=== PATIENT | female | born 1950 | race Two or more races ===

== ENCOUNTER 2016-08-05 11:37 | Outpatient (CLI) | payer MEDICARE ==
--- NOTE | 2016-08-05 13:45 | Diagnostic Imaging Report ---
Indication: COUGH Technique: PA and lateral views of the chest. Findings: Comparison: None Small osteophytes in lower thoracic spine. Aortic arch mildly calcified. Remaining bones and extra pulmonary soft tissues, remainder of the cardiomediastinal silhouette, pulmonary vasculature and parenchyma, and pleural surfaces are unremarkable. IMPRESSION: No evidence of acute cardiopulmonary disease Chronic changes as described
== END 2016-08-05 13:07 | disposition home or self-care (01) ==
LOC: RAD 11:37 → EDBD 11:37 → RAD 13:07
DX: Z01.818 Encounter for other preprocedural examination (principal); R05 Cough; M25.78 Osteophyte, vertebrae
CPT/HCPCS: 71020

== ENCOUNTER 2018-01-24 11:21 | Outpatient (CLI) | payer MEDICARE, MEDICAID ==
--- NOTE | 2018-01-24 13:20 | Diagnostic Imaging Report ---
Indication: Dyspnea Comparison: 08/05/2016 2 views of the chest obtained. Findings: Heart is normal size. There is some interstitial prominence. Lungs are hyperexpanded. Bones are osteopenic. IMPRESSION: COPD
== END 2018-01-24 13:21 | disposition home or self-care (01) ==
LOC: RAD 11:21
DX: I10 Essential (primary) hypertension (principal); J44.9 Chronic obstructive pulmonary disease, unspecified
CPT/HCPCS: 71046

== ENCOUNTER 2019-04-03 12:04 | Outpatient (CLI) | payer MEDICARE, MEDICAID ==
--- NOTE | 2019-04-03 13:13 | Diagnostic Imaging Report ---
Indication: Cough Technique: 2 views of the chest Comparison: 01/24/2018 Findings: Lungs and pleural spaces are clear. The heart size is normal. The bones are unremarkable. No significant interim change. Impression: Negative
[2019-04-16] MEDS ORDERED: CRESTOR10 M2 ORAL (15:27)
[2019-04-16] MEDS ORDERED: OMEPRAZOLE40 M1 ORAL (15:27)
[2019-04-16] MEDS ORDERED: PROLIA60 MG/1 ML SUBQ (15:28)
== END 2019-04-03 14:04 | disposition home or self-care (01) ==
LOC: RAD 12:04
DX: R05 Cough (principal); I10 Essential (primary) hypertension
CPT/HCPCS: 71046

== ENCOUNTER 2019-04-17 05:16 | Inpatient (IN) | payer MEDICARE, MEDICAID ==
[~2019-04-17] VITALS: Ht 149.9 cm; Wt 55.8 kg
[2019-04-17] VITALS (16 sets, daily range): BP systolic 100–137; BP diastolic 56–104
[~2019-04-17 05:16] MED LIST: CRESTOR10 M2 ORAL; OMEPRAZOLE40 M1 ORAL; PROLIA60 MG/1 ML SUBQ
[2019-04-17] MEDS ORDERED: ceFAZolin 1gm IVPB IVPB ONE ×2 (06:00)
[2019-04-17] MEDS ORDERED: celeBREX 200mg Cap **SURGERY PATIENTS ONLY ORAL ONE (06:00)
[2019-04-17] MEDS ORDERED: oxyCONTIN 20mg tab ORAL ONE (06:00)
[2019-04-17] MEDS ORDERED: Bacitracin 50000 Units Vial ONE (06:59)
[2019-04-17] MEDS ORDERED: NeoSporin Gu Irrig 1ml Amp IRRIG ONE (06:59)
[2019-04-17] MEDS ORDERED: LR 1000ml ONE (07:00)
[2019-04-17] MEDS ORDERED: NS Irrig 2000ml IRRIG ONE (07:00)
[2019-04-17] MEDS ORDERED: Tranexamic Acid 100 ML IVPB ONE (07:00)
[2019-04-17] MEDS ORDERED: Sterile Water Irrig 1000ml IRRIG ONE (07:00)
[2019-04-17] MEDS ORDERED: Tranexamic Acid 1,000 MG in NS 55 ML IV ONE (07:00)
[2019-04-17] MEDS ORDERED: NS Irrig 1000ml ONE (07:00)
--- NOTE | 2019-04-17 07:00 | Pre-Procedure Note/Attestation ---
Pre-Procedure Note/Attestation Complete Prior to Procedure Planned Procedure: right Procedure Narrative: right total knee arthroplasty Indications for Procedure Pre-Operative Diagnosis: right knee arthritis Attestation I attest that I discussed the nature of the procedure; its benefits; risks and complications; and alternatives (and the risks and benefits of such alternatives ), prior to the procedure, with the patient (or the patient's legal player services representative). I attest that, if there was a reasonable possibility of needing a blood transfusion, the patient (or the patient's legal player services representative) was given the [facility] standardized written summary, pursuant to the [place] Blood Safety Act ([place] Health and Safety Code # 1645, as amended). I attest that I re-evaluated the patient just prior to the surgery and that there has been no change in the patient's H&P, except as documented below: none Shoaib Booker MD Apr 17, 2019 07:00
[2019-04-17] MEDS ORDERED: Morphine Sulfate 10mg/ml Inj ONE ×2 (07:21→07:27)
[2019-04-17] MEDS ORDERED: Propofol 200mg/20ml IV ONE (07:35)
[2019-04-17] MEDS ORDERED: Dexamethasone 4mg/ml vial ONE ×2 (07:35→08:36)
[2019-04-17] MEDS ORDERED: Lidocaine 1% MPF 10mg/ml 5ml ONE (07:35)
[2019-04-17] MEDS ORDERED: Ketorolac 30mg Inj ONE ×2 (07:46→08:36)
--- NOTE | 2019-04-17 07:58 | Anethesia Preoperative Eval ---
Anesthesia Pre-op PMH/ROS General Date of Evaluation: Apr 17, 2019 Time of Evaluation: 07:00 ASA Score: ASA 2 Mallampati Score Class I : Soft palate, uvula, fauces, pillars visible Class II: Soft palate, uvula, fauces visible Class III: Soft palate, base of uvula visible Class IV: Only hard plate visible Mallampati Classification: Class II Allergies: Coded Allergies: No Known Allergies (Unverified , 04/17/19) Patient NPO?: Yes NPO Date: Apr 16, 2019 NPO Time: 1800 Anesthesia Pre-op Phys. Exam Physician Exam Last Vital Signs Date Time Temp Pulse Resp B/P (MAP) Pulse Ox O2 Delivery O2 Flow Rate FiO2 04/17/19 06:00 Room Air 04/17/19 05:49 97.0 78 18 125/76 (92) 97 Airway Exam Mallampati Score: Class II Pepe Knight MD Apr 17, 2019 07:58
[2019-04-17] MEDS ORDERED: fentaNYL 100 mcg/2 mL IV PRN (08:00)
[2019-04-17] MEDS ORDERED: Metoclopramide 10mg/2ml Inj ONE (08:36)
--- NOTE | 2019-04-17 09:29 | Brief Operative Note ---
Immediate Post Operative Note Operative Note Chief Complaint: rt knee pain Pre-op Diagnosis: right knee arthritis Procedure: rt tka Post-op Diagnosis: same as pre-op Findings: consistent w/pre-op dx studies Surgeon: md prem Produce Production Team Member: maame carvalho Anesthesiologist: MD Eugene/MD Sudheer Anesthesia: general, regional Specimen: yes Complications: none Condition: stable Fluids: ns Estimated Blood Loss: minimal Drains: none Implant(s) used?: Yes - Shoaib Junior MD Apr 17, 2019 09:29
--- NOTE | 2019-04-17 09:46 | Immediate Post-Op Evaluation ---
Immediate Post-Op Evalulation Immediate Post-Op Evalulation Procedure: Right TKA Date of Evaluation: Apr 17, 2019 Time of Evaluation: 09:47 IV Fluids: 1.2L Blood Products: 0 Estimated Blood Loss: 50 Urinary Output: 200 Blood Pressure Systolic: 130 Blood Pressure Diastolic: 76 Pulse Rate: 99 Respiratory Rate: 16 O2 Sat by Pulse Oximetry: 100 Temperature (Fahrenheit): 98 Pain Score (1-10): 0 Nausea: No Vomiting: No Complications 0 Patient Status: awake, reacts, patent, none Hydration Status: adequate Drug: Ancef 2g Given Within 1 Hr of Incision: Yes Rimma Yeboah MD Apr 17, 2019 09:46
[2019-04-17] MEDS ORDERED: Milk of Magnesia 30ml Ud ORAL PRN ×2 (12:00→16:00)
[2019-04-17] MEDS ORDERED: HYDROcodone/Acetamin 7.5/325 tab ORAL PRN ×2 (12:00→16:00)
[2019-04-17] MEDS ORDERED: HYDROmorphone 1mg/ml Carpuject SUBQ PRN ×2 (12:00→16:00)
[2019-04-17] MEDS ORDERED: D5 1/2NS w/KCl 20mEq 1,000 ML IV SCH (12:30)
--- NOTE | 2019-04-17 12:39 | Diagnostic Imaging Report ---
Indication: Reason For Exam: POST-OP COMPARISON: None Findings: 2 views of the right knee were obtained postoperatively. A cemented total knee arthroplasty is demonstrated. The alignment and position of the prosthetic is satisfactory. There are no abnormal interface lucencies or evidence of an acute fracture. There is soft tissue swelling and air indicative of the recent surgery. Impression: Status post cemented left total knee arthroplasty. No radiographic evidence for complications in the immediate postop period.
[2019-04-17] MEDS ORDERED: Docusate 100mg cap ORAL SCH (13:00)
[2019-04-17 13:16] LABS: HEMATOCRIT 39.4 % (37.0-47.0); HEMOGLOBIN 13.1 G/DL (12.0-16.0); MEAN CORPUSCULAR VOLUME 91 FL (80-99); PLATELET COUNT 220 K/UL (150-450); RED BLOOD COUNT 4.35 M/UL (4.20-5.40); RED CELL DISTRIBUTION WIDTH 12.3 % (11.6-14.8); WHITE BLOOD COUNT 17.4 K/UL (4.8-10.8)
[2019-04-17 13:32] LABS: ANION GAP 12 mmol/L (5-15); BLOOD UREA NITROGEN 14 mg/dL (7-18); CALCIUM 8.6 MG/DL (8.5-10.1); CARBON DIOXIDE 26 MMOL/L (21-32); CHLORIDE 106 MMOL/L (98-107); CREATININE 0.7 MG/DL (0.55-1.30); POTASSIUM 4.2 MMOL/L (3.5-5.1); SODIUM 144 MMOL/L (136-145)
--- NOTE | 2019-04-17 15:40 | Diagnostic Imaging Report ---
Indication: Dyspnea Comparison: 04/03/2019 A single view chest radiograph was obtained. Findings: There is mild left basal atelectasis. The heart is borderline enlarged. Lung volumes are low. Bones are osteopenic. IMPRESSION: Mild left basal atelectasis
[2019-04-17] MEDS: D5 1/2NS w/KCl 20mEq 1,000 ML IV SCH (15:50)
[2019-04-17] MEDS ORDERED: ceFAZolin sod 1 GM in D5W 55 ML IV SCH (16:00)
--- NOTE | 2019-04-17 16:00 | Operative Note - Dictated ---
DATE OF OPERATION: 04/17/2019 PREOPERATIVE DIAGNOSIS: Right knee end-stage arthritis. POSTOPERATIVE DIAGNOSIS: Right knee end-stage arthritis. PROCEDURE: Right total knee arthroplasty using Markus system, size 2 Triathlon cruciate-retaining femoral component, size 2 tibial base plate component, 9 mm thick poly and 27 mm patellar component all cemented. SURGEON: Shoaib Booker M.D. GLASS BELT SANDER: Marlene Bermudez PA-C. ANESTHESIOLOGIST: Dr. Knight. ANESTHESIA: General LMA anesthesia combined with local block for postoperative pain management. ESTIMATED BLOOD LOSS: Less than 100 mL. TOURNIQUET TIME: 75 minutes. COMPLICATIONS: None. BRIEF HISTORY: The patient is a pleasant 68-year-old female, who has had ongoing right knee pain. She was unable to ambulate very well. After she failed conservative treatment, after full discussion of risks, benefits of the surgery and complications associated with it including infection, bleeding, neurovascular complication, possibility of continued pain, possible stiffness, possibility of need for revision surgery, DVT, PE, and other complications that may arise. Down the line, she opted for surgical treatment as described above. OPERATIVE PROCEDURE: The patient was brought to the operating room and was placed supine. All pressure points were well padded. Anesthesia was induced by the anesthesiologist. The right leg was prepped and draped in usual sterile fashion and transaxemic acid and preoperative antibiotics were given. A time-out was performed. The right leg was then prepped and draped in usual sterile fashion and the leg was exsanguinated. Tourniquet was inflated to 275 mmHg. A standard anterior approach to the knee was undertaken and the incision was taken through subcutaneous tissue. Medial parapatellar arthrotomy was performed and the kneecap was everted. The medial release of the MCL was performed. At this point, the knee was bent and intramedullary access into the femur was obtained. ACL and PCL were released and resected. The intramedullary femoral guide was placed in and the distal cut was performed in 5 degrees of valgus. Subsequently, measurements were made, size 2 femur to be right size, the guide was placed in 3 degrees external rotation. An anterior, posterior, and chamfer cuts were performed. All excess bone was removed. A size 2 trial femur was applied and was slightly lateralized and the peg holes were drilled. There was excellent fit of the femur. At this point, care was given to the tibia. The anterior tibial crest was palpated and was marked with a marking suture. The extramedullary guide was then used and the anatomical axilla of the tibia was recreated using extramedullary guide, the slope was recreated. Appropriate retractors were placed in posteriorly, medially, and laterally and at this point, a tibial cut was performed without any complications. Once this was completed, sizing was performed and size 2 appeared to be the right size. This was placed about 3 degrees of external rotation covering the tibia and the central hole was drilled and the flanges were punched. Once this was completed, a trial femur and tibia were applied and 9 mm poly was applied and there was excellent range of motion and stability at 0, 30 degrees, 45 degrees, 90 degrees and with full extension and full flexion. At this point, care was given to the patella. The patella was everted. It measured 23 mm. At this point, a standard cut of the patella was performed and 13 mm was remaining. A 27 mm patella was then used and the peg holes were drilled and trial was applied. At this point, the patellofemoral tracking was checked and was excellent. At this point, all trial components were removed and knee was thoroughly irrigated using copious amount of fluid. The cement was mixed. Tibial component, femoral component, and patellar components were all cemented in without any complications. The excess cement was removed. Once the cement hardened, the knee was thoroughly irrigated using Simpulse irrigation and 9 mm ultra crosslinked poly was then applied and locked in without any complication. Range of motion stability was checked and appeared to be excellent as described previously. Patellofemoral tracking was checked and appeared to be perfect. At this point, the tourniquet was deflated and there was minimal bleeding that was stopped with electrocautery. The extensor mechanism was closed using #1 Vicryl suture. Subcutaneous tissue was closed using 2-0 Vicryl suture. Zipline sutureless skin approximating device was applied to minimize wound complications and Dermabond was applied. Sterile dressing was applied. The patient tolerated procedure well without complications. The patient was taken to the recovery in stable condition. All lap counts and instrument counts were correct. Shoaib Davin Booker DR: ABDIFATAH JOB#: [id number] CC: ANDREIA
--- NOTE | 2019-04-17 16:33 | Consultation ---
History of Present Illness General Date patient seen: Apr 17, 2019 Time patient seen: 17:00 Present Illness HPI 68 y/o w/ R TKA with inability to arouse post-op improved with narcan administration now remains alert and breathing stable w/o complaints of shortness of breath. Allergies: Coded Allergies: No Known Allergies (Unverified , 04/17/19) Medication History Scheduled Denosumab (Prolia), 60 MG SUBQ EVERY 6 MONTHS, (Reported) Omeprazole (Omeprazole), 40 MG ORAL DAILY, (Reported) Rosuvastatin Calcium* (Crestor*), 10 MG ORAL DAILY, (Reported) Patient History Limited by: language barrier, medical condition Healthcare decision maker reina renee - Resuscitation status Full Code Advanced Directive on File Past Medical/Surgical History Past Medical/Surgical History: (1) Arthritis of right knee Review of Systems All Other Systems: negative except mentioned in HPI Physical Exam General Appearance: WD/WN, no apparent distress, other - sleepy but easily arousable HEENT: normocephalic, atraumatic, anicteric, mucous membranes moist Neck: non-tender, supple Respiratory/Chest: lungs clear Cardiovascular/Chest: normal rate, regular rhythm Abdomen: normal bowel sounds, non tender Extremities: no edema Last 24 Hour Vital Signs Date Time Temp Pulse Resp B/P (MAP) Pulse Ox O2 Delivery O2 Flow Rate FiO2 04/17/19 16:00 96.8 89 18 110/56 (74) 99 04/17/19 13:55 97.8 90 12 110/70 (83) 100 04/17/19 13:20 76 12 117/73 (88) 100 04/17/19 13:00 98 12 119/73 (88) 100 04/17/19 12:15 126 8 137/82 (100) 97 04/17/19 11:15 97.8 104 12 128/104 (112) 97 04/17/19 11:15 97.8 92 18 118/59 99 Nasal Cannula 3 04/17/19 11:00 90 16 111/61 100 Nasal Cannula 3 04/17/19 10:45 91 14 106/63 99 Nasal Cannula 3 04/17/19 10:30 93 15 121/60 99 Nasal Cannula 3 04/17/19 10:25 90 19 105/62 100 Nasal Cannula 3 04/17/19 10:15 94 18 109/62 98 Nasal Cannula 3 04/17/19 10:00 104 15 133/78 100 Simple Mask 6 04/17/19 09:55 108 14 130/76 100 Simple Mask 6 04/17/19 09:46 99 16 100 04/17/19 09:42 98.0 70 16 100/70 100 Simple Mask 6 04/17/19 06:00 Room Air 04/17/19 05:49 97.0 78 18 125/76 (92) 97 Intake and Output 04/16/19 04/17/19 19:00 07:00 # Voids 1 Laboratory Tests Test 04/17/19 13:10 White Blood Count 17.4 K/UL (4.8-10.8) H Red Blood Count 4.35 M/UL (4.20-5.40) Hemoglobin 13.1 G/DL (12.0-16.0) Hematocrit 39.4 % (37.0-47.0) Mean Corpuscular Volume 91 FL (80-99) Mean Corpuscular Hemoglobin 30.2 PG (27.0-31.0) Mean Corpuscular Hemoglobin Concent 33.3 G/DL (32.0-36.0) Red Cell Distribution Width 12.3 % (11.6-14.8) Platelet Count 220 K/UL (150-450) Mean Platelet Volume 6.7 FL (6.5-10.1) Neutrophils (%) (Auto) % (45.0-75.0) Lymphocytes (%) (Auto) % (20.0-45.0) Monocytes (%) (Auto) % (1.0-10.0) Eosinophils (%) (Auto) % (0.0-3.0) Basophils (%) (Auto) % (0.0-2.0) Differential Total Cells Counted 100 Neutrophils % (Manual) 86 % (45-75) H Lymphocytes % (Manual) 5 % (20-45) L Monocytes % (Manual) 2 % (1-10) Eosinophils % (Manual) 0 % (0-3) Basophils % (Manual) 0 % (0-2) Band Neutrophils 7 % (0-8) Platelet Estimate Adequate Platelet Morphology Normal Red Blood Cell Morphology Normal Sodium Level 144 MMOL/L (136-145) Potassium Level 4.2 MMOL/L (3.5-5.1) Chloride Level 106 MMOL/L (98-107) Carbon Dioxide Level 26 MMOL/L (21-32) Anion Gap 12 mmol/L (5-15) Blood Urea Nitrogen 14 mg/dL (7-18) Creatinine 0.7 MG/DL (0.55-1.30) Estimat Glomerular Filtration Rate > 60 mL/min (>60) Glucose Level 244 MG/DL (74-106) H Calcium Level 8.6 MG/DL (8.5-10.1) Troponin I 0.000 ng/mL (0.000-0.056) Height (Feet): 4 Height (Inches): 11.00 Weight (Pounds): 120 Medications Current Medications Medications (Trade) Dose Ordered Sig/Lizett Route PRN Reason Start Time Stop Time Status Last Admin Dose Admin Acetaminophen (Tylenol) 650 mg Q4H PRN ORAL temp>100.2 or headache 04/17/19 16:00 05/17/19 11:59 Acetaminophen/ Hydrocodone Bitart ([place]y 7.5/325) 1 tab Q4H PRN ORAL Moderate Pain (Pain Scale 4-6) 04/17/19 16:00 04/24/19 11:59 Aspirin (Ecotrin) 325 mg BID ORAL 04/17/19 18:00 05/17/19 17:59 Atorvastatin Calcium (Lipitor) 10 mg BEDTIME ORAL 04/17/19 21:00 05/17/19 20:59 Cefazolin Sodium 1 gm/Dextrose 55 ml @ 110 mls/hr Q8H IV 04/17/19 16:00 04/18/19 00:29 Celecoxib (CeleBREX) 200 mg DAILY ORAL 04/18/19 09:00 05/18/19 08:59 Dextrose/ Electrolytes 1,000 ml @ 75 mls/hr [id number] IV 04/17/19 15:30 05/17/19 12:29 04/17/19 15:50 Docusate Sodium (Colace) 100 mg THREE TIMES A DAY ORAL 04/18/19 09:00 05/17/19 12:59 Ferrous Sulfate (Feosol) 325 mg THREE TIMES A DAY ORAL 04/18/19 09:00 05/17/19 12:59 Hydromorphone HCl (Dilaudid) 1 mg Q4H PRN SUBQ Severe Pain (Pain Scale 7-10) 04/17/19 16:00 04/24/19 11:59 Magnesium Hydroxide (Mom) 30 ml DAILYPRN PRN ORAL Constipation 04/17/19 16:00 05/17/19 15:59 Ondansetron HCl (Zofran) 4 mg Q6H PRN IVP Nausea & Vomiting 04/17/19 16:00 05/17/19 15:59 Pantoprazole (Protonix) 40 mg DAILY ORAL 04/18/19 09:00 05/18/19 08:59 Temazepam (RestoriL) 7.5 mg HSPRN PRN ORAL Insomnia 04/17/19 21:00 04/24/19 20:59 Assessment/Plan Assessment/Plan: Problem List: * R knee OA s/p R TKA * Oversedation post-surgery, possibly from narcotics s/p narcan Plan: * Monitor respiratory status * Check ABG * Judicious use of pain meds * Post-op care per surgery Adam Israel MD Apr 17, 2019 16:33
[2019-04-17] MEDS: ceFAZolin sod 1 GM in D5W 55 ML IV SCH (17:00)
[2019-04-17] MEDS ORDERED: Aspirin EC 325mg tab ORAL SCH (18:00)
[2019-04-17] MEDS: Aspirin EC 325mg tab ORAL SCH (18:14)
--- NOTE | 2019-04-17 23:30 | Consultation ---
DATE OF CONSULTATION: 04/17/2019 INTERNAL MEDICINE CONSULTATION CONSULTING PHYSICIAN: Denny Saavedra M.D. HISTORY OF PRESENT ILLNESS: The patient is a very pleasant 68-year-old female who underwent right knee replacement today at [place] with Dr. Shoaib Booker. Postoperatively, the patient became unresponsive likely from over-sedation and was given Narcan a few times and she slowly aroused. The patient was also tachycardic. There is no fevers or chills. No chest pain. No abdominal pain. PAST MEDICAL HISTORY: Includes a history of arthritis, history of hypercholesteremia, history of osteoporosis, history of reflux, history of appendectomy, history of previous right knee arthroscopy x2, history of cataract surgery in both eyes in 2014, history of asthma 10 years ago, however, she is not on inhalers, and history of dextroscoliosis of the thoracic spine. MEDICATIONS: Medications she is on, please see reconciled medication list. FAMILY HISTORY: Noncontributory. ALLERGIES: None known. SOCIAL HISTORY: She does not smoke, does not drink any alcohol, or use any drugs. PHYSICAL EXAMINATION: GENERAL: She is well developed and well nourished, currently somewhat sleepy. VITAL SIGNS: Revealed blood pressure 132/82, respirations of 8 to 18, saturations 97% to 100%. Pulse was 126, now it is 89. HEENT: Head is normocephalic and atraumatic. Pupils are equally reactive to light. Extraocular muscles are intact. Eyes are anicteric. NECK: Supple. No JVP. No bruits. LUNGS: Clear to auscultation bilaterally. HEART: Regular rate and rhythm. ABDOMEN: Soft. Positive bowel sounds. Nondistended and nontender. EXTREMITIES: Dressing is clean, neurovascularly intact. NEUROLOGIC: She is sleepy. She does move all her extremities. LABORATORY AND DIAGNOSTIC DATA: Reveal a white count of 17, hemoglobin of 13.1, hematocrit 39.4, and platelet count 220,000. Sodium 144, potassium 4.2, chloride 106, bicarb 26, BUN 14, and creatinine 0.7. Glucose was 244. Troponin was 0. Chest x-ray reveals mild left basilar atelectasis. Venous duplex reveals no evidence of DVT. EKG noted. ASSESSMENT AND PLAN: The patient is a 68-year-old female status post right knee replacement today, who became unresponsive, responded to Narcan, now is more awake. She is somewhat tachycardic. She is transferred to a monitored bed. An ABG will be checked. Pulmonary evaluation was requested. We will need to monitor her respiratory status. Avoid over-sedation. She does have leukocytosis, which we will monitor. Her sugar was also elevated as well. We will check the labs in the a.m. She does not have a history of diabetes. The patient should be on DVT and ulcer prophylaxes. Denny Saavedra M.D. DR: JENNIFER JOB#: [id number] CC:
[2019-04-18] VITALS: BP 99/60
[2019-04-18] MEDS: ceFAZolin sod 1 GM in D5W 55 ML IV SCH (00:25)
[2019-04-18] MEDS: D5 1/2NS w/KCl 20mEq 1,000 ML IV SCH ×3 (03:23→22:00)
[2019-04-18 04:00] VITALS: BP 101/60
[2019-04-18 06:25] LABS: BASOPHILS % (AUTO) 0.2 % (0.0-2.0); HEMATOCRIT 36.3 % (37.0-47.0); LYMPHOCYTES % (AUTO) 8.1 % (20.0-45.0); MEAN CORPUSCULAR VOLUME 91 FL (80-99); MONOCYTES % (AUTO) 11.4 % (1.0-10.0); NEUTROPHILS % (AUTO) 80.2 % (45.0-75.0); PLATELET COUNT 192 K/UL (150-450); RED BLOOD COUNT 4.01 M/UL (4.20-5.40); RED CELL DISTRIBUTION WIDTH 12.3 % (11.6-14.8); WHITE BLOOD COUNT 12.9 K/UL (4.8-10.8)
[2019-04-18 06:38] LABS: CHOLESTEROL 144 MG/DL (< 200); HDL CHOLESTEROL 90 MG/DL (40-60); TRIGLYCERIDES 55 MG/DL (30-150)
--- NOTE | 2019-04-18 07:43 | Orthopedic Progress Note ---
Orthopedic - Progress Note Subjective Symptoms: c/o post-op knee pain Objective Last 24 Hour Vital Signs Date Time Temp Pulse Resp B/P (MAP) Pulse Ox O2 Delivery O2 Flow Rate FiO2 04/18/19 04:00 98.1 81 16 101/60 (74) 98 04/18/19 04:00 76 04/18/19 00:00 97.7 87 16 99/60 (73) 98 04/17/19 21:00 Nasal Cannula 1.0 04/17/19 20:00 97.5 77 16 105/59 (74) 96 04/17/19 20:00 77 04/17/19 19:45 97 Nasal Cannula 2.0 28 04/17/19 16:00 96.8 89 18 110/56 (74) 99 04/17/19 16:00 91 04/17/19 13:55 97.8 90 12 110/70 (83) 100 04/17/19 13:20 76 12 117/73 (88) 100 04/17/19 13:00 98 12 119/73 (88) 100 04/17/19 12:15 126 8 137/82 (100) 97 04/17/19 11:15 97.8 104 12 128/104 (112) 97 04/17/19 11:15 97.8 92 18 118/59 99 Nasal Cannula 3 04/17/19 11:00 90 16 111/61 100 Nasal Cannula 3 04/17/19 10:45 91 14 106/63 99 Nasal Cannula 3 04/17/19 10:30 93 15 121/60 99 Nasal Cannula 3 04/17/19 10:25 90 19 105/62 100 Nasal Cannula 3 04/17/19 10:15 94 18 109/62 98 Nasal Cannula 3 04/17/19 10:00 104 15 133/78 100 Simple Mask 6 04/17/19 09:55 108 14 130/76 100 Simple Mask 6 04/17/19 09:46 99 16 100 04/17/19 09:42 98.0 70 16 100/70 100 Simple Mask 6 Intake and Output 04/17/19 04/18/19 19:00 07:00 Intake Total 120 ml Balance 120 ml Intake IV Total 120 ml Laboratory Tests Test 04/17/19 13:10 04/17/19 17:30 04/18/19 05:10 White Blood Count 17.4 K/UL (4.8-10.8) H 12.9 K/UL (4.8-10.8) H Red Blood Count 4.35 M/UL (4.20-5.40) 4.01 M/UL (4.20-5.40) L Hemoglobin 13.1 G/DL (12.0-16.0) 12.0 G/DL (12.0-16.0) Hematocrit 39.4 % (37.0-47.0) 36.3 % (37.0-47.0) L Mean Corpuscular Volume 91 FL (80-99) 91 FL (80-99) Mean Corpuscular Hemoglobin 30.2 PG (27.0-31.0) 29.9 PG (27.0-31.0) Mean Corpuscular Hemoglobin Concent 33.3 G/DL (32.0-36.0) 33.1 G/DL (32.0-36.0) Red Cell Distribution Width 12.3 % (11.6-14.8) 12.3 % (11.6-14.8) Platelet Count 220 K/UL (150-450) 192 K/UL (150-450) Mean Platelet Volume 6.7 FL (6.5-10.1) 7.6 FL (6.5-10.1) Neutrophils (%) (Auto) % (45.0-75.0) 80.2 % (45.0-75.0) H Lymphocytes (%) (Auto) % (20.0-45.0) 8.1 % (20.0-45.0) L Monocytes (%) (Auto) % (1.0-10.0) 11.4 % (1.0-10.0) H Eosinophils (%) (Auto) % (0.0-3.0) 0.0 % (0.0-3.0) Basophils (%) (Auto) % (0.0-2.0) 0.2 % (0.0-2.0) Differential Total Cells Counted 100 Neutrophils % (Manual) 86 % (45-75) H Lymphocytes % (Manual) 5 % (20-45) L Monocytes % (Manual) 2 % (1-10) Eosinophils % (Manual) 0 % (0-3) Basophils % (Manual) 0 % (0-2) Band Neutrophils 7 % (0-8) Platelet Estimate Adequate Platelet Morphology Normal Red Blood Cell Morphology Normal Sodium Level 144 MMOL/L (136-145) Potassium Level 4.2 MMOL/L (3.5-5.1) Chloride Level 106 MMOL/L (98-107) Carbon Dioxide Level 26 MMOL/L (21-32) Anion Gap 12 mmol/L (5-15) Blood Urea Nitrogen 14 mg/dL (7-18) Creatinine 0.7 MG/DL (0.55-1.30) Estimat Glomerular Filtration Rate > 60 mL/min (>60) Glucose Level 244 MG/DL (74-106) H Calcium Level 8.6 MG/DL (8.5-10.1) Troponin I 0.000 ng/mL (0.000-0.056) Arterial Blood pH 7.309 (7.350-7.450) Arterial Blood Partial Pressure CO2 53.6 mmHg (35.0-45.0) H Arterial Blood Partial Pressure O2 89.8 mmHg (75.0-100.0) Arterial Blood HCO3 26.3 mmol/L (22.0-26.0) H Arterial Blood Oxygen Saturation 96.2 % (95-100) Arterial Blood Base Excess -0.7 (-2-2) Leonard Test Positive Triglycerides Level 55 MG/DL (30-150) Cholesterol Level 144 MG/DL (< 200) LDL Cholesterol 41 mg/dL (<100) HDL Cholesterol 90 MG/DL (40-60) H Cholesterol/HDL Ratio 1.6 (3.3-4.4) L Wound: clean, dry Drains: none Neuro Status: normal Vascular Status: normal Assessment Procedure Performed rt tka Plan Plan: PT, discharge plan - Continue PT and discharge planning, Shoaib Booker MD Apr 18, 2019 07:43
[2019-04-18 08:00] VITALS: BP 105/57
[2019-04-18] MEDS: Aspirin EC 325mg tab ORAL SCH ×2 (08:50→17:19)
[2019-04-18] MEDS ORDERED: Docusate 100mg cap ORAL SCH (09:00)
[2019-04-18] MEDS ORDERED: celeBREX 200mg Cap **SURGERY PATIENTS ONLY ORAL SCH ×2 (09:00)
--- NOTE | 2019-04-18 09:27 | 48 Hour Post Anesthesia Eval ---
Post Anesthesia Evaluation Procedure: Right TKA Date of Evaluation: Apr 18, 2019 Time of Evaluation: 09:26 Blood Pressure Systolic: 105 0: 57 Pulse Rate: 99 Respiratory Rate: 18 Temperature (Fahrenheit): 98.1 O2 Sat by Pulse Oximetry: 97 Airway: patent Nausea: No Vomiting: No Pain Intensity: 2 Hydration Status: adequate Cardiopulmonary Status: Stable Mental Status/LOC: patient returned to baseline Follow-up Care/Observations: 0 Post-Anesthesia Complications: 0 Follow-up care needed: N/A Ancelmo Tong MD Apr 18, 2019 09:27
[2019-04-18] MEDS ORDERED: HYDROmorphone 1mg/ml Carpuject SUBQ PRN (11:24)
[2019-04-18] MEDS ORDERED: Milk of Magnesia 30ml Ud ORAL PRN (11:24)
[2019-04-18 12:00] VITALS: BP 104/66
[2019-04-18] MEDS: Docusate 100mg cap ORAL SCH ×2 (12:08→17:20)
[2019-04-18] MEDS: HYDROcodone/Acetamin 7.5/325 tab ORAL PRN ×2 (15:17→22:28)
--- NOTE | 2019-04-18 15:47 | Cardiac Electrophysiology PN ---
Subjective Subjective Cardiology Consult dictated Objective Last 24 Hour Vital Signs Date Time Temp Pulse Resp B/P (MAP) Pulse Ox O2 Delivery O2 Flow Rate FiO2 04/18/19 12:00 99.8 91 17 104/66 (79) 94 04/18/19 09:27 99 18 97 04/18/19 09:00 Nasal Cannula 1.0 04/18/19 08:00 99 04/18/19 08:00 98.1 99 18 105/57 (73) 97 04/18/19 04:00 98.1 81 16 101/60 (74) 98 04/18/19 04:00 76 04/18/19 00:00 97.7 87 16 99/60 (73) 98 04/17/19 21:00 Nasal Cannula 1.0 04/17/19 20:00 97.5 77 16 105/59 (74) 96 04/17/19 20:00 77 04/17/19 19:45 97 Nasal Cannula 2.0 28 04/17/19 16:00 96.8 89 18 110/56 (74) 99 04/17/19 16:00 91 Intake and Output 04/17/19 04/18/19 19:00 07:00 Intake Total 120 ml Balance 120 ml IV Total 120 ml Laboratory Tests Test 04/17/19 17:30 04/18/19 05:10 Arterial Blood pH 7.309 (7.350-7.450) Arterial Blood Partial Pressure CO2 53.6 mmHg (35.0-45.0) H Arterial Blood Partial Pressure O2 89.8 mmHg (75.0-100.0) Arterial Blood HCO3 26.3 mmol/L (22.0-26.0) H Arterial Blood Oxygen Saturation 96.2 % (95-100) Arterial Blood Base Excess -0.7 (-2-2) Leonard Test Positive White Blood Count 12.9 K/UL (4.8-10.8) H Red Blood Count 4.01 M/UL (4.20-5.40) L Hemoglobin 12.0 G/DL (12.0-16.0) Hematocrit 36.3 % (37.0-47.0) L Mean Corpuscular Volume 91 FL (80-99) Mean Corpuscular Hemoglobin 29.9 PG (27.0-31.0) Mean Corpuscular Hemoglobin Concent 33.1 G/DL (32.0-36.0) Red Cell Distribution Width 12.3 % (11.6-14.8) Platelet Count 192 K/UL (150-450) Mean Platelet Volume 7.6 FL (6.5-10.1) Neutrophils (%) (Auto) 80.2 % (45.0-75.0) H Lymphocytes (%) (Auto) 8.1 % (20.0-45.0) L Monocytes (%) (Auto) 11.4 % (1.0-10.0) H Eosinophils (%) (Auto) 0.0 % (0.0-3.0) Basophils (%) (Auto) 0.2 % (0.0-2.0) Triglycerides Level 55 MG/DL (30-150) Cholesterol Level 144 MG/DL (< 200) LDL Cholesterol 41 mg/dL (<100) HDL Cholesterol 90 MG/DL (40-60) H Cholesterol/HDL Ratio 1.6 (3.3-4.4) Elliot Haq MD Apr 18, 2019 15:47
[2019-04-18 16:00] VITALS: BP 109/65
[2019-04-18 20:00] VITALS: BP 117/74
--- NOTE | 2019-04-18 22:42 | General Progress Note ---
Assessment/Plan Assessment/Plan: sp knee replacment post op respiratory depression secondary to sedation/narcotics responded to narcan tachyccardia resolved htn ho osteoarthrotis pain control PT per ortho monitor respiratory status muche improved bp controlled dvt and ulcer prohyalxis Subjective Allergies: Coded Allergies: No Known Allergies (Unverified , 04/17/19) Subjective feels better awake come congestion chest painor sob co knee pains post op Objective Last 24 Hour Vital Signs Date Time Temp Pulse Resp B/P (MAP) Pulse Ox O2 Delivery O2 Flow Rate FiO2 04/18/19 20:17 96 Room Air 21 04/18/19 16:00 97.1 87 19 109/65 (80) 97 04/18/19 12:00 99.8 91 17 104/66 (79) 94 04/18/19 09:27 99 18 97 04/18/19 09:00 Nasal Cannula 1.0 04/18/19 08:00 99 04/18/19 08:00 98.1 99 18 105/57 (73) 97 04/18/19 04:00 98.1 81 16 101/60 (74) 98 04/18/19 04:00 76 04/18/19 00:00 97.7 87 16 99/60 (73) 98 Intake and Output 04/17/19 04/18/19 19:00 07:00 Intake Total 120 ml Balance 120 ml IV Total 120 ml Laboratory Tests 04/18/19 05:10: White Blood Count 12.9H, Red Blood Count 4.01L, Hemoglobin 12.0, Hematocrit 36.3L, Mean Corpuscular Volume 91, Mean Corpuscular Hemoglobin 29.9, Mean Corpuscular Hemoglobin Concent 33.1, Red Cell Distribution Width 12.3, Platelet Count 192, Mean Platelet Volume 7.6, Neutrophils (%) (Auto) 80.2H, Lymphocytes ( %) (Auto) 8.1L, Monocytes (%) (Auto) 11.4H, Eosinophils (%) (Auto) 0.0, Basophils (%) (Auto) 0.2, Triglycerides Level 55, Cholesterol Level 144, LDL Cholesterol 41, HDL Cholesterol 90H, Cholesterol/HDL Ratio 1.6L Height (Feet): 4 Height (Inches): 11.00 Weight (Pounds): 123 General Appearance: WD/WN, no apparent distress Neck: supple Cardiovascular: normal rate Respiratory/Chest: lungs clear Abdomen: soft Objective knee dressing clean no sign of infection neurovascular intact no edema Denny Saavedra MD Apr 18, 2019 22:41
[2019-04-19] VITALS: BP 111/84
[2019-04-19 04:00] VITALS: BP 110/70
[2019-04-19] MEDS: HYDROcodone/Acetamin 7.5/325 tab ORAL PRN ×2 (06:48→12:45)
[2019-04-19 07:16] LABS: BASOPHILS % (AUTO) 0.5 % (0.0-2.0); EOSINOPHILS % (AUTO) 0.4 % (0.0-3.0); HEMATOCRIT 34.3 % (37.0-47.0); HEMOGLOBIN 11.5 G/DL (12.0-16.0); LYMPHOCYTES % (AUTO) 20.7 % (20.0-45.0); MEAN CORPUSCULAR VOLUME 91 FL (80-99); MONOCYTES % (AUTO) 9.7 % (1.0-10.0); NEUTROPHILS % (AUTO) 68.8 % (45.0-75.0); PLATELET COUNT 176 K/UL (150-450); RED BLOOD COUNT 3.77 M/UL (4.20-5.40); RED CELL DISTRIBUTION WIDTH 12.7 % (11.6-14.8); WHITE BLOOD COUNT 8.3 K/UL (4.8-10.8)
[2019-04-19 08:00] VITALS: BP 105/70
[2019-04-19 08:01] LABS: ALANINE AMINOTRANSFERASE 26 U/L (12-78); ALBUMIN 2.9 G/DL (3.4-5.0); ALBUMIN/GLOBULIN RATIO 0.9 (1.0-2.7); ALKALINE PHOSPHATASE 71 U/L (46-116); ANION GAP 10 mmol/L (5-15); ASPARTATE AMINO TRANSFERASE 17 U/L (15-37); BILIRUBIN,TOTAL 0.7 MG/DL (0.2-1.0); BLOOD UREA NITROGEN 8 mg/dL (7-18); CALCIUM 8.1 MG/DL (8.5-10.1); CARBON DIOXIDE 27 MMOL/L (21-32); CHLORIDE 109 MMOL/L (98-107); CREATININE 0.6 MG/DL (0.55-1.30); POTASSIUM 4.2 MMOL/L (3.5-5.1); SODIUM 146 MMOL/L (136-145)
--- NOTE | 2019-04-19 08:14 | Orthopedic Progress Note ---
Orthopedic - Progress Note Subjective Symptoms: improved Objective Laboratory Tests Test 04/19/19 05:30 White Blood Count 8.3 K/UL (4.8-10.8) Red Blood Count 3.77 M/UL (4.20-5.40) L Hemoglobin 11.5 G/DL (12.0-16.0) L Hematocrit 34.3 % (37.0-47.0) L Mean Corpuscular Volume 91 FL (80-99) Mean Corpuscular Hemoglobin 30.6 PG (27.0-31.0) Mean Corpuscular Hemoglobin Concent 33.6 G/DL (32.0-36.0) Red Cell Distribution Width 12.7 % (11.6-14.8) Platelet Count 176 K/UL (150-450) Mean Platelet Volume 7.1 FL (6.5-10.1) Neutrophils (%) (Auto) 68.8 % (45.0-75.0) Lymphocytes (%) (Auto) 20.7 % (20.0-45.0) Monocytes (%) (Auto) 9.7 % (1.0-10.0) Eosinophils (%) (Auto) 0.4 % (0.0-3.0) Basophils (%) (Auto) 0.5 % (0.0-2.0) Sodium Level 146 MMOL/L (136-145) H Potassium Level 4.2 MMOL/L (3.5-5.1) Chloride Level 109 MMOL/L (98-107) H Carbon Dioxide Level 27 MMOL/L (21-32) Anion Gap 10 mmol/L (5-15) Blood Urea Nitrogen 8 mg/dL (7-18) Creatinine 0.6 MG/DL (0.55-1.30) Estimat Glomerular Filtration Rate > 60 mL/min (>60) Glucose Level 117 MG/DL (74-106) H Calcium Level 8.1 MG/DL (8.5-10.1) L Total Bilirubin 0.7 MG/DL (0.2-1.0) Aspartate Amino Transf (AST/SGOT) 17 U/L (15-37) Alanine Aminotransferase (ALT/SGPT) 26 U/L (12-78) Alkaline Phosphatase 71 U/L (46-116) Pro-B-Type Natriuretic Peptide 535 pg/mL (0-125) H Total Protein 6.2 G/DL (6.4-8.2) L Albumin 2.9 G/DL (3.4-5.0) L Globulin 3.3 g/dL Albumin/Globulin Ratio 0.9 (1.0-2.7) L Last 24 Hour Vital Signs Date Time Temp Pulse Resp B/P (MAP) Pulse Ox O2 Delivery O2 Flow Rate FiO2 04/19/19 04:00 97.8 90 20 110/70 (83) 99 04/19/19 00:00 98.5 86 18 111/84 (93) 95 04/18/19 21:00 Nasal Cannula 1.0 04/18/19 20:17 96 Room Air 21 04/18/19 20:00 99.7 90 20 117/74 (88) 94 04/18/19 16:00 97.1 87 19 109/65 (80) 97 04/18/19 12:00 99.8 91 17 104/66 (79) 94 04/18/19 09:27 99 18 97 04/18/19 09:00 Nasal Cannula 1.0 Intake and Output 04/18/19 04/19/19 19:00 07:00 Intake Total 360 ml 690 ml Balance 360 ml 690 ml Intake Oral 360 ml 240 ml IV Total 450 ml # Voids 1 3 # Bowel Movements 1 Laboratory Tests Test 04/19/19 05:30 White Blood Count 8.3 K/UL (4.8-10.8) Red Blood Count 3.77 M/UL (4.20-5.40) L Hemoglobin 11.5 G/DL (12.0-16.0) L Hematocrit 34.3 % (37.0-47.0) L Mean Corpuscular Volume 91 FL (80-99) Mean Corpuscular Hemoglobin 30.6 PG (27.0-31.0) Mean Corpuscular Hemoglobin Concent 33.6 G/DL (32.0-36.0) Red Cell Distribution Width 12.7 % (11.6-14.8) Platelet Count 176 K/UL (150-450) Mean Platelet Volume 7.1 FL (6.5-10.1) Neutrophils (%) (Auto) 68.8 % (45.0-75.0) Lymphocytes (%) (Auto) 20.7 % (20.0-45.0) Monocytes (%) (Auto) 9.7 % (1.0-10.0) Eosinophils (%) (Auto) 0.4 % (0.0-3.0) Basophils (%) (Auto) 0.5 % (0.0-2.0) Sodium Level 146 MMOL/L (136-145) H Potassium Level 4.2 MMOL/L (3.5-5.1) Chloride Level 109 MMOL/L (98-107) H Carbon Dioxide Level 27 MMOL/L (21-32) Anion Gap 10 mmol/L (5-15) Blood Urea Nitrogen 8 mg/dL (7-18) Creatinine 0.6 MG/DL (0.55-1.30) Estimat Glomerular Filtration Rate > 60 mL/min (>60) Glucose Level 117 MG/DL (74-106) H Calcium Level 8.1 MG/DL (8.5-10.1) L Total Bilirubin 0.7 MG/DL (0.2-1.0) Aspartate Amino Transf (AST/SGOT) 17 U/L (15-37) Alanine Aminotransferase (ALT/SGPT) 26 U/L (12-78) Alkaline Phosphatase 71 U/L (46-116) Pro-B-Type Natriuretic Peptide 535 pg/mL (0-125) H Total Protein 6.2 G/DL (6.4-8.2) L Albumin 2.9 G/DL (3.4-5.0) L Globulin 3.3 g/dL Albumin/Globulin Ratio 0.9 (1.0-2.7) L Wound: clean, dry, intact Drains: none Neuro Status: normal Vascular Status: normal Assessment Post-op Diagnosis POD 2 Procedure Performed Rt TKA Plan Plan: discharge to home - d/c with home care/DME, other - dressing change prior to d/c. has all outpt meds. Has f/u with us next week Marlene Bermudez Apr 19, 2019 08:14
--- NOTE | 2019-04-19 08:32 | Discharge Summary ---
Discharge Summary Hospital Course Date of Admission Apr 17, 2019 at 05:16 Date of Discharge 04/19/2019 Admitting Diagnosis rt knee arthritis Reason for Hospitalization: s/p rt tka HPI Kalie Dejesus is a 68 year old female who was admitted on Apr 17, 2019 at 05:16 for Osteoarthritis Of Right Knee Consultations MD Quentin, MD Raad Procedures rt total knee arthroplasty Hospital Course following surgery upon arrival to the floor rapid response team was called due to somnolence and decreased respirations. pt responded to narcan given and spent her first night monitored on telemetry. pt was stable yesterday for transfer back to the floor. she has been steadily improving and progressing and is stable for d/c. Discharge Condition Upon Discharge: improving, stable Discharge Vital Signs Last Vital Signs Date Time Temp Pulse Resp B/P (MAP) Pulse Ox O2 Delivery O2 Flow Rate FiO2 04/19/19 04:00 97.8 90 20 110/70 (83) 99 04/18/19 21:00 Nasal Cannula 1.0 04/18/19 20:17 21 Discharge Disposition Patient was discharged to home with home health, services, and DME. Marlene Bermudez Apr 19, 2019 08:32
--- NOTE | 2019-04-19 08:45 | Consultation ---
DATE OF CONSULTATION: 04/18/2019 CARDIOLOGY CONSULTATION CONSULTING PHYSICIAN: Elliot Astudillo M.D. REFERRING PHYSICIAN: Denny Saavedra M.D. REASON FOR CONSULTATION: 00:14 altered mental status after knee surgery. HISTORY OF PRESENT ILLNESS: The patient is a very pleasant 68-year-old lady, who underwent a right knee replacement with Dr. Booker. Postoperatively, the patient developed altered mental status and transferred to telemetry for further evaluation and management. The patient denies any prior myocardial infarction or congestive heart failure. At the time of my evaluation, the patient denies any chest pain or shortness of breath. REVIEW OF SYSTEMS: Negative other than what is mentioned in the history of present illness. PAST MEDICAL HISTORY: As mentioned above. FAMILY HISTORY: Noncontributory. SOCIAL HISTORY: She lives at home with the family. Does not smoke or drink alcohol. PHYSICAL EXAMINATION: VITAL SIGNS: Show blood pressure of 110/70, pulse is 70, respirations 18, and she is afebrile. HEAD AND NECK: Showed no JVD or carotid bruit. LUNGS: Clear. CARDIOVASCULAR: Shows regular S1 and S2 with no gallop or murmur. ABDOMEN: Soft and nontender. EXTREMITIES: No pitting edema, status post right knee surgery. DIAGNOSTIC DATA: Her 12-lead EKG showed normal sinus rhythm with no acute ST-T wave abnormalities. ASSESSMENT AND PLAN: 1. 02:27 altered mental status likely due to over-sedation. She denies any chest pain or shortness of breath. The EKG is nonischemic. I would just get an echocardiogram to evaluate ejection fraction and wall motion abnormality. 2. Status post right knee surgery by Dr. Booker. The patient is pretty stable at this point. 3. Hyperlipidemia. 4. Osteoporosis. Thank you very much, Dr. Saavedra, for allowing me to participate in the care of this patient. Please do not hesitate to contact me for any questions regarding my evaluation. Elliot Astudillo M.D. DR: MELITA JOB#: [id number] CC:
[2019-04-19] MEDS ORDERED: celeBREX 200mg Cap **SURGERY PATIENTS ONLY ORAL SCH (09:00)
[2019-04-19] MEDS: Docusate 100mg cap ORAL SCH ×2 (09:48→12:45)
[2019-04-19] MEDS: Aspirin EC 325mg tab ORAL SCH (09:49)
--- NOTE | 2019-04-19 10:48 | Cardiac Electrophysiology PN ---
Assessment/Plan Assessment/Plan 1. Altered mental status likely due to over-sedation. She denies any chest pain or shortness of breath. The EKG is nonischemic. Echocardiogram Nl EF 2. Status post right knee surgery by Dr. Booker. The patient is pretty stable at this point. 3. Hyperlipidemia. 4. Osteoporosis. OK to DC Subjective Subjective Alert in NAD. ECho Nl EF and ECG nonischemic. Objective Last 24 Hour Vital Signs Date Time Temp Pulse Resp B/P (MAP) Pulse Ox O2 Delivery O2 Flow Rate FiO2 04/19/19 09:00 Nasal Cannula 1.0 04/19/19 08:00 98.3 109 20 105/70 (82) 97 04/19/19 04:00 97.8 90 20 110/70 (83) 99 04/19/19 00:00 98.5 86 18 111/84 (93) 95 04/18/19 21:00 Nasal Cannula 1.0 04/18/19 20:17 96 Room Air 21 04/18/19 20:00 99.7 90 20 117/74 (88) 94 04/18/19 16:00 97.1 87 19 109/65 (80) 97 04/18/19 12:00 99.8 91 17 104/66 (79) 94 Intake and Output 04/18/19 04/19/19 19:00 07:00 Intake Total 360 ml 690 ml Balance 360 ml 690 ml Intake Oral 360 ml 240 ml IV Total 450 ml # Voids 1 3 # Bowel Movements 1 Laboratory Tests Test 04/19/19 05:30 White Blood Count 8.3 K/UL (4.8-10.8) Red Blood Count 3.77 M/UL (4.20-5.40) L Hemoglobin 11.5 G/DL (12.0-16.0) L Hematocrit 34.3 % (37.0-47.0) L Mean Corpuscular Volume 91 FL (80-99) Mean Corpuscular Hemoglobin 30.6 PG (27.0-31.0) Mean Corpuscular Hemoglobin Concent 33.6 G/DL (32.0-36.0) Red Cell Distribution Width 12.7 % (11.6-14.8) Platelet Count 176 K/UL (150-450) Mean Platelet Volume 7.1 FL (6.5-10.1) Neutrophils (%) (Auto) 68.8 % (45.0-75.0) Lymphocytes (%) (Auto) 20.7 % (20.0-45.0) Monocytes (%) (Auto) 9.7 % (1.0-10.0) Eosinophils (%) (Auto) 0.4 % (0.0-3.0) Basophils (%) (Auto) 0.5 % (0.0-2.0) Sodium Level 146 MMOL/L (136-145) H Potassium Level 4.2 MMOL/L (3.5-5.1) Chloride Level 109 MMOL/L (98-107) H Carbon Dioxide Level 27 MMOL/L (21-32) Anion Gap 10 mmol/L (5-15) Blood Urea Nitrogen 8 mg/dL (7-18) Creatinine 0.6 MG/DL (0.55-1.30) Estimat Glomerular Filtration Rate > 60 mL/min (>60) Glucose Level 117 MG/DL (74-106) H Calcium Level 8.1 MG/DL (8.5-10.1) L Total Bilirubin 0.7 MG/DL (0.2-1.0) Aspartate Amino Transf (AST/SGOT) 17 U/L (15-37) Alanine Aminotransferase (ALT/SGPT) 26 U/L (12-78) Alkaline Phosphatase 71 U/L (46-116) Pro-B-Type Natriuretic Peptide 535 pg/mL (0-125) H Total Protein 6.2 G/DL (6.4-8.2) L Albumin 2.9 G/DL (3.4-5.0) L Globulin 3.3 g/dL Albumin/Globulin Ratio 0.9 (1.0-2.7) L Objective HEAD AND NECK: No JVD or carotid bruit. LUNGS: Clear. CARDIOVASCULAR: Shows regular S1 and S2 with no gallop or murmur. ABDOMEN: Soft and nontender. EXTREMITIES: No pitting edema, status post right knee surgery. Elliot Astudillo MD Apr 19, 2019 10:48
[2019-04-19 11:57] VITALS: BP 100/64
--- NOTE | 2019-04-19 21:55 | General Progress Note ---
Assessment/Plan Assessment/Plan: sp knee replacment post op respiratory depression secondary to sedation/narcotics responded to narcan tachyccardia resolved htn ho osteoarthrotis pain control PT per ortho respiratory status stable bp controlled dvt and ulcer prohyalxis dc plans per orth with HH Subjective Allergies: Coded Allergies: No Known Allergies (Unverified , 04/17/19) Subjective feels better awake alert no chest pain or sob Objective Last 24 Hour Vital Signs Date Time Temp Pulse Resp B/P (MAP) Pulse Ox O2 Delivery O2 Flow Rate FiO2 04/19/19 13:15 97.0 04/19/19 11:57 97.0 99 18 100/64 (76) 97 04/19/19 09:00 Nasal Cannula 1.0 04/19/19 08:00 98.3 109 20 105/70 (82) 97 04/19/19 04:00 97.8 90 20 110/70 (83) 99 04/19/19 00:00 98.5 86 18 111/84 (93) 95 Intake and Output 04/18/19 04/19/19 19:00 07:00 Intake Total 360 ml 690 ml Balance 360 ml 690 ml Intake Oral 360 ml 240 ml IV Total 450 ml # Voids 1 3 # Bowel Movements 1 Laboratory Tests 04/19/19 05:30: White Blood Count 8.3, Red Blood Count 3.77L, Hemoglobin 11.5L, Hematocrit 34.3L , Mean Corpuscular Volume 91, Mean Corpuscular Hemoglobin 30.6, Mean Corpuscular Hemoglobin Concent 33.6, Red Cell Distribution Width 12.7, Platelet Count 176, Mean Platelet Volume 7.1, Neutrophils (%) (Auto) 68.8, Lymphocytes (% ) (Auto) 20.7, Monocytes (%) (Auto) 9.7, Eosinophils (%) (Auto) 0.4, Basophils ( %) (Auto) 0.5, Sodium Level 146H, Potassium Level 4.2, Chloride Level 109H, Carbon Dioxide Level 27, Anion Gap 10, Blood Urea Nitrogen 8, Creatinine 0.6, Estimat Glomerular Filtration Rate > 60, Glucose Level 117H, Calcium Level 8.1L , Total Bilirubin 0.7, Aspartate Amino Transf (AST/SGOT) 17, Alanine Aminotransferase (ALT/SGPT) 26, Alkaline Phosphatase 71, Pro-B-Type Natriuretic Peptide 535H, Total Protein 6.2L, Albumin 2.9L, Globulin 3.3, Albumin/Globulin Ratio 0.9L Height (Feet): 4 Height (Inches): 11.00 Weight (Pounds): 123 General Appearance: WD/WN, no apparent distress Neck: supple Cardiovascular: normal rate Respiratory/Chest: lungs clear Abdomen: soft Objective knee dressing clean no sign of infection neurovascular intact no edema Denny Saavedra MD Apr 19, 2019 21:55
== END 2019-04-19 15:00 | disposition home health service (06) | DRG 470 ==
LOC: SDSOVERFLO 05:16 → 3E 11:15 → 2E 15:17 → 3E 04-18 11:20
PROC: 0SRC0J9 Replacement of Right Knee Joint with Synthetic Substitute, Cemented, Open Approach (ICD-10-PCS; principal; 2019-04-17 07:00)
DX: M17.11 Unilateral primary osteoarthritis, right knee (principal); J95.89 Other postprocedural complications and disorders of respiratory system, not elsewhere classified; Y83.9 Surgical procedure, unspecified as the cause of abnormal reaction of the patient, or of later complication, without mention of misadventure at the time of the procedure; M81.0 Age-related osteoporosis without current pathological fracture; G47.00 Insomnia, unspecified; E78.5 Hyperlipidemia, unspecified; R41.82 Altered mental status, unspecified; R00.0 Tachycardia, unspecified
CPT/HCPCS: 36415; 36600; 71045; 80048; 80053; 80061; 82803; 83880; 84484; 85007; 85025; 86850; 86900; 86901; 87081; 93005; 93306; 93970; 94003; 94150; J2405; J2765